=== PATIENT | female | born 1960 | race Caucasian/White ===

== ENCOUNTER 2017-05-22 01:58 | Emergency (ER) | payer OTHER, MEDICAID ==
[2017-05-22] MEDS ORDERED: LIDOCAINE 1% INJ-PF (10 MG/ML) 30 ML SDV ONE (02:21)
[2017-05-22] MEDS ORDERED: AMOXICILLIN TR/POT CLAVULANATE 500-125 MG TAB PO ONE (02:27)
--- NOTE | 2017-05-22 02:35 | ER Document Report ---
ED General - General Chief Complaint: Toothache Stated Complaint: FACE PAIN Time Seen by Provider: 05/22/17 02:14 Notes: Patient is a 57-year-old woman with a past medical history of chronic pain currently on a pain contract who presents with 1 week of progressively worsening pain and swelling to the right side of her face from an apparent dental infection of her tooth #7. Patient describes a severe, constant throbbing pain. Eating and touching the area worsens the pain. She has been taking her chronic home pain medications without improvement of the pain. She is scheduled follow-up with her dentist within the next 1 week but came to the emergency department as she states the pain has become unbearable and she is concerned that she needs to go on antibiotics for treatment. She denies any fever or constitutional symptoms. No difficult breathing or swallowing. TRAVEL OUTSIDE OF THE [place] IN LAST 30 DAYS: No - Related Data Allergies/Adverse Reactions: aspirin [Aspirin] Allergy (Verified 01/01/12 10:16) gabapentin [From Neurontin] Allergy (Verified 01/01/12 10:16) metaxalone [From Skelaxin] Allergy (Verified 01/01/12 10:16) NSAIDS (Non-Steroidal Anti-Inflamma [Nsaids] Allergy (Verified 01/01/12 10:16) Past Medical History - General Information source: Patient - Social History Smoking Status: Never Smoker Frequency of alcohol use: None Drug Abuse: None Family History: Reviewed & Not Pertinent Pulmonary Medical History: Reports: Hx Asthma Skin Medical History: Reports Hx MRSA Psychiatric Medical History: Reports: Hx Anxiety, Hx Attention Deficit Hyperactivity Disorder, Hx Depression Past Surgical History: Reports: Hx Appendectomy, Hx Section, Hx Orthopedic Surgery - bilat knee arthoscopy - Immunizations Hx Diphtheria, Pertussis, Tetanus Vaccination: Yes Review of Systems - Review of Systems Notes: Constitutional: Negative for fever. HENT: Positive for dental infection and facial swelling Eyes: Negative for visual changes. Cardiovascular: Negative for chest pain. Respiratory: Negative for shortness of breath. Gastrointestinal: Negative for abdominal pain, vomiting or diarrhea. Genitourinary: Negative for dysuria. Musculoskeletal: Negative for back pain. Skin: Negative for rash. Neurological: Negative for headaches, weakness or numbness. 10 point ROS negative except as marked above and in HPI. Physical Exam - Vital signs Interpretation: Normal Notes: PHYSICAL EXAMINATION: GENERAL: Appears uncomfortable but in no acute distress HEAD: Atraumatic, normocephalic. EYES: Pupils equal round and reactive to light, extraocular movements intact, sclera anicteric, conjunctiva are normal. ENT: nares patent, there is an apical abscess above tooth #7, mild right-sided facial swelling but otherwise unremarkable facial exam. Oropharynx clear without exudates. Moist mucous membranes. NECK: Normal range of motion, supple without lymphadenopathy LUNGS: Breath sounds clear to auscultation bilaterally and equal. No wheezes rales or rhonchi. HEART: Regular rate and rhythm without murmurs ABDOMEN: Soft, nontender, normoactive bowel sounds. No guarding, no rebound. No masses appreciated. EXTREMITIES: Normal range of motion, no pitting or edema. No cyanosis. NEUROLOGICAL: No focal neurological deficits. Moves all extremities spontaneously and on command. PSYCH: Normal mood, normal affect. SKIN: Warm, Dry, normal turgor, no rashes or lesions noted. Course - Re-evaluation Re-evalutation: 05/22/17 02:29 Patient presents with an abscess over tooth #7 with associated poor dentition throughout. The small apical abscess was lanced with a 18-gauge needle with expression of approximately 1-1.5 cc of purulent drainage. Patient was started on Augmentin and has planned follow-up with her dentist in the next several days. She is otherwise well in appearance, no significant facial edema or swelling, vitals within normal limits, airway is patent. No evidence of a Valdo's angina, airway compromise or any other life-threatening pathology at this time. At this time will discharge with return precautions and follow-up recommendations. Verbal discharge instructions given a the bedside and opportunity for questions given. Medication warnings reviewed. Patient is in agreement with this plan and has verbalized understanding of return precautions and the need for dental follow-up in the next 24-72 hours. Procedures - Incision and Drainage Dental Type: Simple Anesthetic type: 1% Lidocaine mL's of anesthetic: 1 Blade size: 11 Incision Method: Incision made with needle Amount/type of drainage: 2 cc purulent drainage Discharge - Discharge Clinical Impression: Apical abscess, Dental infection Condition: Good Disposition: HOME, SELF-CARE Additional Instructions: You have been seen for dental pain. You had an apical abscess under tooth which was drained here in the emergency department. It is very important that you follow-up with a dentist for definitive care. Please return if you develop fever greater than 101, worsening swelling in your face, vomiting, difficulty breathing or swallowing, or any other symptoms that are concerning to you. Take your home pain medications as directed. Please take the antibiotics as directed. Prescriptions: Amox Tr/Potassium Clavulanate [Augmentin 875-125 Tablet] 1 tab PO BID 10 Days tablet
== END 2017-05-22 02:50 | disposition home or self-care (01) ==
LOC: ER 01:58
DX: K04.7 Periapical abscess without sinus (principal); K08.89 Other specified disorders of teeth and supporting structures; J45.909 Unspecified asthma, uncomplicated; G89.29 Other chronic pain; Z79.899 Other long term (current) drug therapy; Z88.6 Allergy status to analgesic agent; Z88.8 Allergy status to other drugs, medicaments and biological substances; Z86.14 Personal history of Methicillin resistant Staphylococcus aureus infection
CPT/HCPCS: 99282

== ENCOUNTER 2019-12-21 20:15 | Emergency (ER) | payer OTHER, MEDICARE ==
--- NOTE | 2019-12-21 21:10 | ER Document Report ---
ED Medical Screen (RME) - General Chief Complaint: Eye Problem Stated Complaint: LEFT EYE PAIN, DECREASED VISION, SENSITIVE TO LIGH Time Seen by Provider: 12/21/19 21:02 Primary Care Provider: LORRAINE SMITH MD [Primary Care Provider] - Follow up as needed Mode of Arrival: Ambulatory Information source: Patient Notes: HPI; 59-year-old female presents to the emergency room complaining of worsening left eye pain and sensitivity to light. States she thought she may have gotten relief and it about 10 days ago while riding on her tractor clearing land. States she flushed it but the symptoms of gotten progressively worse. States wears contacts but she took them out 2 days ago. Complains of blurry vision but states she has not tried to wear her glasses to see. No head trauma head injury. No history of migraines. PE: Alert and oriented x3. Mild distress noted. Photophobia bilaterally. PERRLA, EOMI lungs: Clear to auscultation without rales, rhonchi, wheezes. Heart: Regular rate rhythm without murmurs, rubs, gallops. I have greeted and performed a rapid initial assessment of this patient. A comprehensive ED assessment and evaluation of the patient, analysis of test results and completion of the medical decision making process will be conducted by additional ED providers. I have specifically instructed the patient or family members with the patient to immediately return to any nursing staff should anything change in the patient's condition or with their chief complaint. TRAVEL OUTSIDE OF THE [place] IN LAST 30 DAYS: No - Related Data Allergies/Adverse Reactions: pregabalin [From Lyrica] Allergy (Intermediate, Verified 12/21/19 21:02) Hallucinations aspirin [Aspirin] Allergy (Verified 01/01/12 10:16) gabapentin [From Neurontin] Allergy (Verified 01/01/12 10:16) metaxalone [From Skelaxin] Allergy (Verified 01/01/12 10:16) NSAIDS (Non-Steroidal Anti-Inflamma [Nsaids] Allergy (Verified 01/01/12 10:16) Past Medical History - Social History Chew tobacco use (# tins/day): No Frequency of alcohol use: None Drug Abuse: None Pulmonary Medical History: Reports: Hx Asthma Renal/ Medical History: Denies: Hx Peritoneal Dialysis Skin Medical History: Reports Hx MRSA Psychiatric Medical History: Reports: Hx Anxiety, Hx Attention Deficit Hyperactivity Disorder, Hx Depression Past Surgical History: Reports: Hx Appendectomy, Hx Section, Hx Orthopedic Surgery - bilat knee arthoscopy - Immunizations Hx Diphtheria, Pertussis, Tetanus Vaccination: Yes Physical Exam - Vital signs Vitals: Temp Pulse Resp BP Pulse Ox 99.0 F 82 18 142/88 H 99 12/21/19 20:34 12/21/19 20:34 12/21/19 20:34 12/21/19 20:34 12/21/19 20:34 Course - Vital Signs Vital signs: Temp Pulse Resp BP Pulse Ox 99.0 F 82 18 142/88 H 99 12/21/19 20:34 12/21/19 20:34 12/21/19 20:34 12/21/19 20:34 12/21/19 20:34 Doctor's Discharge - Discharge Referrals: LORRAINE SMITH MD [Primary Care Provider] - Follow up as needed
--- NOTE | 2019-12-21 21:57 | RADIOLOGY REPORT (SQ) ---
EXAM DESCRIPTION: CT HEAD WITHOUT IV CONTRAST COMPLETED DATE/TME: 12/21/2019 21:07 CLINICAL HISTORY: 59 years, Female, eye pain COMPARISON: None. TECHNIQUE: 189 Images stored on PACS. All CT scanners at this facility use dose modulation, iterative reconstruction, and/or weight based dosing when appropriate to reduce radiation dose to as low as reasonably achievable (ALARA). [facility]: Dose Right [facility]: CareDose [facility]: Dose Right [facility]: Teradose 4D [facility]: [employer] LIMITATIONS: None. FINDINGS: The globes are intact. The paranasal sinuses and mastoid air cells are well aerated. No displaced or depressed skull fracture. No intra or extra-axial hemorrhage. CT is limited for evaluation of acute infarct. No CT evidence for large or territorial acute infarct. No mass. No midline shift IMPRESSION: Unremarkable unenhanced CT brain TECHNICAL DOCUMENTATION: Quality ID # 436: Final reports with documentation of one or more dose reduction techniques (e.g., Automated exposure control, adjustment of the mA and/or kV according to patient size, use of iterative reconstruction technique) copyright 2011 [employer]- All Rights Reserved
[2019-12-21] MEDS ORDERED: TETRACAINE HCL 0.5% OPH SOLN 4 ML ONE (22:56)
[2019-12-21] MEDS ORDERED: BESIFLOXACIN HCL 0.6% OPH SUSP 5 ML BOTTLE OS ONE (23:12)
--- NOTE | 2019-12-21 23:18 | ER Document Report ---
ED Eye Complaint - General Chief Complaint: Eye Problem Stated Complaint: LEFT EYE PAIN, DECREASED VISION, SENSITIVE TO LIGH Time Seen by Provider: 12/21/19 21:02 Primary Care Provider: KELLIE DOUGLAS MD [ACTIVE STAFF] - 12/23/19 Mode of Arrival: Ambulatory Notes: Patient is a 59-year-old female that comes emergency department chief complaint of left eye pain. She states that she has had irritation to the eye for most 10 days now. She states that today she had eye watering, sensitivity to light, and significantly increased pain. She states she does recall while she was riding her tractor that she brushed her face against a branch with leaves and she thinks she might have caused an abrasion to her eye. She states she has a fentanyl patch and thinks that this is been suppressing the pain. She denies discolored discharge, visual loss, headache. She does wear contacts but took them out and has not been wearing them for several days. She denies any other complaints. TRAVEL OUTSIDE OF THE [place] IN LAST 30 DAYS: No - Related Data Allergies/Adverse Reactions: pregabalin [From Lyrica] Allergy (Intermediate, Verified 12/21/19 21:02) Hallucinations aspirin [Aspirin] Allergy (Verified 01/01/12 10:16) gabapentin [From Neurontin] Allergy (Verified 01/01/12 10:16) metaxalone [From Skelaxin] Allergy (Verified 01/01/12 10:16) NSAIDS (Non-Steroidal Anti-Inflamma [Nsaids] Allergy (Verified 01/01/12 10:16) Past Medical History - General Information source: Patient - Social History Smoking Status: Never Smoker Chew tobacco use (# tins/day): No Frequency of alcohol use: None Drug Abuse: None Lives with: Family Family History: Reviewed & Not Pertinent Patient has homicidal ideation: No Pulmonary Medical History: Reports: Hx Asthma Renal/ Medical History: Denies: Hx Peritoneal Dialysis Skin Medical History: Reports Hx MRSA Psychiatric Medical History: Reports: Hx Anxiety, Hx Attention Deficit Hyperactivity Disorder, Hx Depression Past Surgical History: Reports: Hx Appendectomy, Hx Section, Hx Orthopedic Surgery - bilat knee arthoscopy - Immunizations Hx Diphtheria, Pertussis, Tetanus Vaccination: Yes Review of Systems - Review of Systems Constitutional: No symptoms reported EENT: See HPI Cardiovascular: No symptoms reported Respiratory: No symptoms reported Gastrointestinal: No symptoms reported Genitourinary: No symptoms reported Female Genitourinary: No symptoms reported Musculoskeletal: No symptoms reported Skin: No symptoms reported Hematologic/Lymphatic: No symptoms reported Neurological/Psychological: No symptoms reported Physical Exam - Vital signs Vitals: Temp Pulse Resp BP Pulse Ox 99.0 F 82 18 142/88 H 99 12/21/19 20:34 12/21/19 20:34 12/21/19 20:34 12/21/19 20:34 12/21/19 20:34 - Notes Notes: GENERAL: Alert, interacts well. No acute distress. HEAD: Normocephalic, atraumatic. EYES: Pupils equal, round, and reactive to light. Extraocular movements intact. Sclera of the left eye is mildly injected, with fluorescein stain there appears to be a tiny area of uptake in the outer upper quadrant. No discharge. No superficial foreign body, negative May sign. Unremarkable eyelids. ENT: Oral mucosa moist, tongue midline. Oropharynx unremarkable. Airway patent. Nares patent, sinuses non-tender, ear canals unremarkable, TM's intact. NECK: Full range of motion. Supple. Trachea midline. No lymphadenopathy. LUNGS: Clear to auscultation bilaterally, no wheezes, rales, or rhonchi. No respiratory distress. Non-tender chest wall. HEART: Regular rate and rhythm. No murmur EXTREMITIES: Moves all 4 extremities spontaneously. No edema, normal radial and dorsalis pedis pulses bilaterally. No cyanosis. BACK: no cervical, thoracic, lumbar midline tenderness. No saddle anesthesia, normal distal neurovascular exam. Moves all extremities in full range of motion. NEUROLOGICAL: Alert and oriented x3. Normal speech. Cranial nerves II through XII grossly intact. Strength 5/5 in all extremities. PSYCH: Normal affect, normal mood. SKIN: Warm, dry, normal turgor. No rashes or lesions noted. Course - Re-evaluation Re-evalutation: I did review CAT scan from triage, this was negative. Patient does not have a headache, she does not have any neurological deficits. In addition to this when tetracaine drops were placed in the eye patient's pain, light sensitivity, and irritation completely resolved. There is 1 small area on the surface of the eye which could be a tiny ulcer although this is not definite, there are no concerning findings, the pressure in the eye is 12 with 95% confidence. Patient is a contact wearer, therefore she will be placed on Besivance, she will follow-up with the ophthalmology referral on Monday, discussed return precautions. Patient states appreciation and agreement. - Vital Signs Vital signs: Temp Pulse Resp BP Pulse Ox 98.3 F 68 15 146/81 H 100 12/22/19 00:25 12/22/19 00:25 12/22/19 00:25 12/22/19 00:25 12/22/19 00:25 Discharge - Discharge Clinical Impression: Left eye pain Condition: Stable Disposition: HOME, SELF-CARE Additional Instructions: Based on your history and exam I am concerned there might be a very small corneal ulcer, you have been placed on Besivance for this, take as prescribed (1 drop, 3 times a day, for 7 days). Please follow-up on Monday with the ophthalmology referral for additional examination and additional management. Return if you worsen including loss of vision, severe worsening pain, discolored drainage, swelling of the eye, severe headache, or any other concerning or worsening symptoms. Referrals: KELLIE DOUGLAS MD [ACTIVE STAFF] - 12/23/19
[2019-12-21] MEDS ORDERED: TETRACAINE HCL 0.5% OPH SOLN 4 ML OS ONE (23:21)
[2019-12-22] MEDS ORDERED: BESIFLOXACIN HCL 0.6% OPH SUSP 5 ML BOTTLE ONE (00:07)
[2019-12-22 00:26] VITALS: BP 146/81
== END 2019-12-22 00:26 | disposition home or self-care (01) ==
LOC: ER 20:15
DX: H57.12 Ocular pain, left eye (principal); H53.142 Visual discomfort, left eye; H54.7 Unspecified visual loss; H15.89 Other disorders of sclera; W22.8XXA Striking against or struck by other objects, initial encounter; Z88.8 Allergy status to other drugs, medicaments and biological substances; Z79.899 Other long term (current) drug therapy; J45.909 Unspecified asthma, uncomplicated
CPT/HCPCS: 99284; 70450; J3490